=== PATIENT | female | born 1945 | race Caucasian/White ===

== ENCOUNTER 2024-08-26 14:44 | Inpatient (IN) | payer MEDICARE, OTHER ==
[~2024-08-26] VITALS: Ht 170.2 cm; Wt 50.5 kg
[2024-08-26 15:30] LABS: BASOPHILS ABSOLUTE AUTO 0.03 K/mm3 (0.00-0.23); BASOPHILS PERCENT AUTO 0 % (0-2); EOSINOPHILS ABSOLUTE AUTO 0.08 K/mm3 (0.00-0.68); EOSINOPHILS PERCENT AUTO 1 % (0-6); Hematocrit 37.4 % (33.0-51.0); Hemoglobin 12.3 g/dL (11.5-16.0); IMMATURE GRAN ABSOLUTE AUTO 0.09 K/mm3 (0.00-0.10); IMMATURE GRAN PERCENT AUTO 1 % (0-1); LYMPHOCYTES ABSOLUTE AUTO 1.08 K/mm3 (0.84-5.20); LYMPHOCYTES PERCENT AUTO 13 % (21-46); MONOCYTES ABSOLUTE AUTO 0.46 K/mm3 (0.16-1.47); MONOCYTES PERCENT AUTO 6 % (4-13); Mean Corpuscular HGB 31.4 pg (26.0-34.0); Mean Corpuscular HGB Conc 32.9 g/dL (31.5-36.5); Mean Corpuscular Volume 95 fL (80-100); Mean Platelet Volume 9.7 fL (9.1-12.4); NEUTROPHILS ABSOLUTE AUTO 6.41 K/mm3 (1.96-9.15); NEUTROPHILS PERCENT AUTO 79 % (41-73); Platelet Count 245 K/mm3 (150-400); RDW Coefficient Variation 13.2 % (11.7-14.2); RDW Standard Deviation 46.3 fL (35.1-46.3); Red Blood Cell Count 3.92 M/mm3 (3.80-5.20); White Blood Cell Count 8.15 K/mm3 (4.00-11.30)
[2024-08-26] MEDS ORDERED: Ondansetron HCl 2 MG / ML 2ML Vial IV ONE (15:30)
[2024-08-26 15:45] LABS: Albumin, Blood 3.5 g/dL (3.4-5.0); Albumin/Globulin Ratio 1.2 (0.8-1.8); Bilirubin, Total 0.3 mg/dL (0.1-1.0); Bun/Creatinine Ratio 15.2 (12.0-20.0); Calcium, Blood 8.5 mg/dL (8.5-10.1); Creatinine, Blood 0.79 mg/dL (0.40-1.00); Globulin, Blood 2.8 g/dL (2.2-4.0); Potassium, Blood 4.3 mmol/L (3.5-5.5); Thyroid Stimulating Hormone 3.19 uIU/mL (0.360-4.800); Total Protein, Blood 6.3 g/dL (6.4-8.2)
[2024-08-26] MEDS ORDERED: Aspirin 325 MG Tab PO ONE (16:00)
[2024-08-26 16:48] LABS: Source, Urine Clean Catch
[2024-08-26 16:55] LABS: Appearance, Urine Hazy (Clear); Bilirubin, Urine Neg (Neg); Blood, Urine 1+ (Neg); Color, Urine Yellow (P-Yellow); Glucose Qualitative, Urine Neg (Neg); Ketones, Urine 1+ (Neg); Leukocyte Esterase, Urine 2+ (Neg); Nitrite, Urine Neg (Neg); Protein, Urine 2+ (Neg); Specific Gravity, Urine 1.025 (1.003-1.022); Urobilinogen, Urine NORM (Normal)
[2024-08-26 17:09] LABS: Bacteria Many /hpf; Hyaline Casts 0-2 /lpf (0-2); Mucus Light (0-Heavy); Red Blood Cells, Urine 0-2 /hpf (0-2); Squamous Epithelial Cells Many /hpf (Few)
[2024-08-26] MEDS ORDERED: CefTRIAXone Sodium 1,000 MG in NS 50 ML IV ONE (18:55)
[2024-08-26 19:18] LABS: Anti-Xa UFH, PHA Monitoring <0.10 IU/mL; International Normalized Ratio 1.12; Prothrombin Time Results 11.9 Sec (9.7-11.5)
[2024-08-26] MEDS ORDERED: NS 500 ML IV ONE (20:00)
[2024-08-26] MEDS ORDERED: FLU VACC TS2024-25(6MOS UP)/PF 45 MCG/0.5 ML SYRINGE IM ONE (20:00)
[2024-08-26] MEDS ORDERED: Ondansetron HCl 2 MG / ML 2ML Vial IV PRN (20:00)
[2024-08-26] MEDS ORDERED: NS 1,000 ML IV SCH (20:00)
[2024-08-26] MEDS ORDERED: Heparin Sodium 5000 Units/ML 1ML MDV IV ONE (20:45)
[2024-08-26] MEDS ORDERED: Heparin Sodium,Porcine/0.5 NS 500 ML IV SCH (20:45)
[2024-08-26] MEDS ORDERED: Lactobacil 2-S.Thermo-Bifido 1 1 Cap PO SCH (21:00)
[2024-08-26] MEDS ORDERED: Metoprolol Tartrate 25 MG Tab PO SCH (22:00)
[2024-08-26 22:34] VITALS: BP 134/86
--- NOTE | 2024-08-26 23:24 | NUR ---
PT ARRIVED FROM ED TO PCU 2229. A&OX4. VSS ON RA. PT HAS NO C/O CP AT THIS TIME HOWEVER DOES C/O MINIMAL CHEST TIGHTNESS BUT STATES IT HAS IMPROVED. PLACED ON HEPARIN DRIP AND NS @ 125CC/HR PER SEP. PT ORIENTED TO ROOM AND GIVEN CALL VITAL WITHIN REACH. NPO AT MIDNIGHT. WILL CONTINUE HOURLY ROUNDING.
[2024-08-27 03:18] VITALS: BP 118/78
--- NOTE | 2024-08-27 05:08 | NUR ---
SHIFT SUMMARY PT A&OX4. VSS ON . NO C/O CP OR TIGHTNESS. NO SOB, N/V. PT AMBULATING TO BATHROOM WITH ONE ASSIST. CONTINUOUS NS @125CC/HR RUNNING ALONG WITH HEPARIN PER SEP. PT REMAINS NPO SINCE MIDNIGHT. PT RESTING COMFORTABLY IN BED WITH NO FURTHER QUESTIONS OR CONCERNS AT THIS TIME. CALL VITAL WITHIN REACH. WILL REPRT TO ONCOMING NURSE.
[2024-08-27 05:25] LABS: BASOPHILS ABSOLUTE AUTO 0.02 K/mm3 (0.00-0.23); BASOPHILS PERCENT AUTO 0 % (0-2); EOSINOPHILS ABSOLUTE AUTO 0.02 K/mm3 (0.00-0.68); EOSINOPHILS PERCENT AUTO 0 % (0-6); Hematocrit 36.1 % (33.0-51.0); IMMATURE GRAN ABSOLUTE AUTO 0.04 K/mm3 (0.00-0.10); IMMATURE GRAN PERCENT AUTO 0 % (0-1); LYMPHOCYTES ABSOLUTE AUTO 1.26 K/mm3 (0.84-5.20); LYMPHOCYTES PERCENT AUTO 13 % (21-46); MONOCYTES ABSOLUTE AUTO 0.62 K/mm3 (0.16-1.47); MONOCYTES PERCENT AUTO 6 % (4-13); Mean Corpuscular HGB 31.4 pg (26.0-34.0); Mean Corpuscular HGB Conc 33.2 g/dL (31.5-36.5); Mean Corpuscular Volume 95 fL (80-100); NEUTROPHILS ABSOLUTE AUTO 8.04 K/mm3 (1.96-9.15); NEUTROPHILS PERCENT AUTO 80 % (41-73); Platelet Count 231 K/mm3 (150-400); RDW Coefficient Variation 13.2 % (11.7-14.2); RDW Standard Deviation 46.1 fL (35.1-46.3); Red Blood Cell Count 3.82 M/mm3 (3.80-5.20)
[2024-08-27] MEDS ORDERED: Clarify Drug Order XX ONE (06:05)
[2024-08-27 06:18] LABS: Alanine Aminotransfer (ALT/SGP 19 U/L (12-78); Albumin, Blood 3.2 g/dL (3.4-5.0); Albumin/Globulin Ratio 1.2 (0.8-1.8); Alk Phos 56 U/L (50-136); Anion Gap 13 mmol/L (3-11); Aspartate Aminotrans (AST/SGOT 24 U/L (12-37); Bilirubin, Total 0.9 mg/dL (0.1-1.0); Blood Urea Nitrogen 10 mg/dL (8-24); Bun/Creatinine Ratio 12.2 (12.0-20.0); CHOL/HDL RATIO 2.2; CO2, Blood 20 mmol/L (21-32); Chloride, Blood 113 mmol/L (98-108); Cholesterol 177 mg/dL (50-200); Creatinine, Blood 0.82 mg/dL (0.40-1.00); Globulin, Blood 2.6 g/dL (2.2-4.0); Glomerular Filtration Rate 73 (60-); Glucose, Blood 117 mg/dL (70-99); HDL Cholesterol 79 mg/dL (>39); Low Density Lipoprotein Chol 82 mg/dL (0-110); Potassium, Blood 3.6 mmol/L (3.5-5.5); Sodium, Blood 142 mmol/L (136-145); Total Protein, Blood 5.8 g/dL (6.4-8.2); Triglycerides 78 mg/dL (30-160); Very Low Density Lipoprot Chol 15 mg/dL (6-32)
--- NOTE | 2024-08-27 07:15 | NUR ---
THIS RN ASSUMING CARE OF PT AFTER REPORT FROM NOC, RN. PT WAS RESTING IN BED WITH LIGHTS DIMMED WHEN THIS RN ENTERED ROOM, PT WAS ALERT AND RESPONSIVE. PT AXO X 4. SHE DOES C/O OF VISION ISSUES CHRONIC PER PT. SHE DENIES ANY C/P OR PRESSURE TODAY. B/P AND HR STABLE. SHE HAS HEPARIN RUNNING AT 15U/HR WELL NS MAINT, FLUID. BOTH IVS INTACT AND FLOWING WELL. NO SIGNS/SX OF INFILTRATION. SHE DENIES ANY SOB. LUNGS CLEAR WITH SPO2 98% RA. SHE WAS PROVIDED WITH MORNING MEDICATIONS AND BECAME NAUSEATED. NO EMESIS OR ABD PAIN, RESOLVED WITH ZOFRAN. PT NPO UNITL ECHO COMPLETION AND CARDIOLOGY CONSULT. SHE IS NSR AT RATES 80. TROPS TRENDING DOWN 1800 TO 1700. SHE IS POSITIVE FOR UTI BUT DENIES SX AND DECLINES TREATMENT D/T ISSUES WITH ABX. SHE IS PLESANT AND COOPERATIVE. AWITS CARDIOLOGY CONSULT. PLAN TO CONTINUE HEPARIN GTT AND AWAIT CARDIOLOGY ORDERS. PT EDUCATED ON USE OF CALL LIGHT. RESTING COMFORTABLY IN BED AND DENIES NEEDS AT THIS TIME.
[2024-08-27 08:23] VITALS: BP 108/73
[2024-08-27] MEDS ORDERED: Aspirin 81 MG Chew PO SCH (09:00)
[2024-08-27] MEDS ORDERED: Atorvastatin 40 MG Tab PO SCH (09:00)
[2024-08-27] MEDS ORDERED: Dose Adjust by Pharmacy XX STA (11:05)
--- NOTE | 2024-08-27 11:06 | NUR ---
ADVISED TO KEEP HEPARIN GTT RUNNING AT 15U. NO RATE CHANGE AT THIS TIME.
[2024-08-27 12:01] VITALS: BP 103/57
[2024-08-27 13:33] LABS: CORONAVIRUS COVID-19 AG Negative (NEGATIVE); INFLUENZA A AG Negative (NEGATIVE); INFLUENZA B AG Negative (NEGATIVE)
[2024-08-27 15:48] VITALS: BP 115/66
--- NOTE | 2024-08-27 17:46 | NUR ---
PCU DAY SHIFT SUMMARY: PT HAS REMAINED STABLE WITH NO ACUTE CHANGES IN CONDITION SINCE ASSUMPTION OF CARE NOTE. PT CONTINUES OT BE AXO X 4. PT SLEEPY T/O THE DAY. FAMILY CAME TO VISIT AND PLAN OF CARE PROVIDED BY THIS RN. PT DENIED ANY C/P T/O THE DAY AND RATE REMAINED SINUS AT 70-80BPM. PT CONTINUED ON HEPARIN GTT AT 15U W/O COMPLICATION. SHE HAS PLAN FOR ANGIOGRAM TOMORROW. NPO AT MIDNIGHT. PT REMAINED CLEAR LUNG SOUNDS 98% RA. PT WAS HAVING ELEVATED TEMPS 99.2 AND 99.5 BUT ROOM WAS SET AT 85 DEGREES AND PT HAD MULTIPLE BALNKETS ON. DENIED S/SX OF FEVER. PT ATE BREAKFAST AND LUNCH AND DENIED ANY MORE NAUSEA. PLAN TO CONTINUE CARE UNTIL REPORT TO DAISY GRACIA. CALL LIGHT WITHIN REACH
[2024-08-27 19:37] VITALS: BP 128/59
[2024-08-27 23:43] VITALS: BP 115/79
[2024-08-28] VITALS (12 sets, daily range): BP systolic 114–164; BP diastolic 70–95
--- NOTE | 2024-08-28 05:09 | NUR ---
SHIFT SUMMARY PT FORGETFUL AT TIMES HOWEVER REMAINS A&OX4. VSS ON RA. PT CONTINUES TO HAVE HEPARIN RUNNING AND NS @125CC/HR. PT GIVEN MEDS PER MAR. NO C/O PAIN, N/V OR SOB. PT REMAINS ON TELE NSR 80'S. NO FURTHER QUESTIONS OR CONCERNS AT THIS TIME. WILL REPORT TO ONCOMING NURSE.
[2024-08-28 05:16] LABS: Hematocrit 34.1 % (33.0-51.0); Hemoglobin 11.1 g/dL (11.5-16.0); Mean Platelet Volume 9.6 fL (9.1-12.4); Platelet Count 178 K/mm3 (150-400)
[2024-08-28] MEDS ORDERED: Heparin Sodium 5000 Units/ML 1ML MDV IV ONE (06:35)
[2024-08-28] MEDS ORDERED: Dose Adjust by Pharmacy XX STA (06:36)
--- NOTE | 2024-08-28 10:08 | NUR ---
am note this rn assumed care at 0700. vital signs stable. tele sinus rhythm 70s. patient is alert and oriented x4. patient reports "kelodiscope vision" in left eye since her stroke. patient is able to make needs known and uses call light appropriately. denies pain, chest pain/pressure or shortness of breath. lung sounds clear throughout. see shift assessment for further detials. md young in to see patient and discussed plan of care. patient remains npo for angio today.
[2024-08-28] MEDS ORDERED: Verapamil HCL 2.5 MG/ML 2ML Injection ONE (10:29)
[2024-08-28] MEDS ORDERED: NS 250 ML IV ONE (10:29)
[2024-08-28] MEDS ORDERED: Nitroglycerin 2 MG/20 ML BTL ONE (10:30)
[2024-08-28] MEDS ORDERED: Heparin Sodium 1000 Units/ML 10ML MDV ONE ×2 (10:30→13:01)
[2024-08-28] MEDS ORDERED: NS 1,000 ML IV ONE ×2 (10:30→11:50)
[2024-08-28] MEDS ORDERED: Midazolam HCl 1MG / ML 2ML Vial ONE (11:49)
[2024-08-28] MEDS ORDERED: FentaNYL Citrate 50 MCG/ML 2 ML Injection ONE (11:49)
--- NOTE | 2024-08-28 12:05 | NUR ---
left for angio patient left with heart center team for angio at 1200. patient left in no distress and vitals stable.
[2024-08-28] MEDS ORDERED: Tirofiban HCL Monohydrate 3.75 MG/15 ML Vial ONE (13:02)
[2024-08-28] MEDS ORDERED: Clopidogrel Bisulfate 300 MG Cap ONE (13:14)
[2024-08-28] MEDS ORDERED: NS 1,000 ML IV SCH (13:35)
[2024-08-28] MEDS ORDERED: HyDROXyzine HCl 25 MG Tab PO PRN ×2 (16:10→21:10)
--- NOTE | 2024-08-28 16:27 | NUR ---
UPDATE patient son gerda davies called to express concern about patient living with her daughter, his sister, german, stating that his sister yells at her (the patient) and will neglect her care. this rn listened to the sons concerns and the son stated he thinks his sister is using meth and he "hates people who use meth". this rn looked over the admit screening and saw the patient stated no and explained that to the son. this rn went in and spoke with the patient and patient denied her daughter being neglectful and that she does occasoanlly yell at her, but shes "a shit" & "has a leather voice". 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 patient goes into discussing how her eldest son did meth and is in half-way, and her son, gerda davies took that hard, and that her daugher, german, used to do meth but it has been years and she would know if her daughter was. she stated that german and gerda davies have always fought, and butt heads and discussed their relationshp growing up. Patient stated multiple times she is not fearful for her safety and state her daughter is not neglectful or verbally absuive to her.
--- NOTE | 2024-08-28 17:05 | NUR ---
Patient is lying in bed and alert. She has recently returned from an agiogram and is in good spirits but still struggling a bit with her breathing. She shares about the recent of her spouse just a year ago and the complicated grief that she has done through. SHe then talk about her life, her joys, her sharlene ([employer]) and her family (2 boys and 2 girls). 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 I reinforced her helpful attitudes and practices, and provided therapeutic listening and prayer. Patient responded well and showed signs of an elevated mood. I will continue to remain available to patient and family.
[2024-08-28] MEDS ORDERED: HydrALAZINE HCl 20 MG / ML 1ML Vial IV PRN (17:35)
--- NOTE | 2024-08-28 18:06 | NUR ---
shift summary patient right radial site has tr band in place that is fully deflated. patient did have a slight ooze at sight when first returning with two tr bands in place. vital signs stable. update charge nurse rn aidan on conversation with son and patient documented in previous note and international trade teacher aware of the siblinings differences. no acute changes this shift. this rn called md young due to patient complaining of difficulty breathing and orders for atarax placed. patient given atarax in additon to 2l nc for comfort. patient is now talkin on the phone in room with no anxiety. this rn called md young due to patient having bp >160, prn hydrlazine ordered as needed for sbp >160. this rn did not need to give hydralzine as bp under parameters at this time. no acute changes. see previous notes
[2024-08-28] MEDS ORDERED: Atorvastatin 40 MG Tab PO SCH (21:00)
--- NOTE | 2024-08-28 21:23 | NUR ---
CONTACTED RESIDENT WILDER: PT REPORTS SHE CAN'T CATCH HER BREATH OR FOCUS, SHE FEELS OUT OF SORTS. VSS, ENOCURAGED DEEP FOCUSED BREATHS, MUSIC OR TV, PT DECLINES MUSIC OR TV AND IS ATTEMPTING SLOW DEEP BREAHTS. NEW ORDERS REC'D.
[2024-08-29 00:06] VITALS: BP 149/88
[2024-08-29 03:43] VITALS: BP 145/94
[2024-08-29] MEDS ORDERED: Metoprolol Tartrate 1 MG/ML 5 ML VIAL IV PRN (04:45)
[2024-08-29 04:56] VITALS: BP 136/114
[2024-08-29 08:32] VITALS: BP 126/64
[2024-08-29] MEDS ORDERED: METO50ER PO (08:47)
[2024-08-29] MEDS ORDERED: Metoprolol Succinate 25 MG TABCR PO SCH (09:00)
[2024-08-29] MEDS ORDERED: Losartan Potassium 25 MG Tab PO SCH (09:00)
[2024-08-29] MEDS ORDERED: Clopidogrel Bisulfate 75 MG Tab PO SCH (09:00)
[2024-08-29] MEDS ORDERED: Metoprolol Succinate 25 MG TABCR PO ONE (09:45)
[2024-08-29 11:47] VITALS: BP 121/73
[2024-08-29] MEDS ORDERED: LOW DOSE ASPIRI81 M1 PO (13:03)
[2024-08-29] MEDS ORDERED: LOSA25 PO (13:04)
[2024-08-29] MEDS ORDERED: CLOP75 PO (13:04)
[2024-08-29] MEDS ORDERED: ATOR40TA PO (13:04)
[2024-08-29] MEDS ORDERED: HYDHCL25 PO (14:14)
[2024-08-29 15:35] VITALS: BP 119/60
--- NOTE | 2024-08-29 16:14 | NUR ---
Patient is lying in bed and alert. She tells me that she will D/C to home today. She shares personal stories with a theme of tragedy to triumph and of God's power and love that has guided her and healed her. 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 Because of her strong sharlene, I supplied prayer and theological insights, with a good results of encouraging her in her belief system.
--- NOTE | 2024-08-29 18:21 | NUR ---
DISCHARGE SUMMARY PT A&Ox4, CALLS AND COMMUNICATES NEEDS APPROPRIATELY. BP STABLE, SINUS 90's, DENIES CP/PRESSURE. SpO2> 92% RA, DENIES SOB. SBA IN ROOM. R RADIAL SITE WNL, ARM BOARD IN PLACE. NO EPISODES OF ANXIETY. DISCHARGE INSTRUCTIONS PROVIDED WITH FAMILY AT BEDSIDE. PT TAKEN OUT VIA WHEELCHAIR BY CLINICAL STAFF MEMBER WITH ALL PT BELONGINGS AT APPROXIMATELY 1630.
[2024-08-30] MEDS ORDERED: Metoprolol Succinate 50 MG TABCR PO SCH (09:00)
== END 2024-08-29 16:38 | disposition home or self-care (01) | DRG 322 ==
LOC: ER 14:44 → ERHOLD 19:55 → PCU 19:55
PROVIDERS: Nurse Practitioner Acute Care; Student in an Organized Health Care Education/Training Program; ADMIT Internal Medicine
PROC: 027034Z Dilation of Coronary Artery, One Artery with Drug-eluting Intraluminal Device, Percutaneous Approach (ICD-10-PCS; principal; 2024-08-28)
PROC: B2111ZZ Fluoroscopy of Multiple Coronary Arteries using Low Osmolar Contrast (ICD-10-PCS; 2024-08-28)
PROC: 4A023N7 Measurement of Cardiac Sampling and Pressure, Left Heart, Percutaneous Approach (ICD-10-PCS; 2024-08-28)
PROC: B2111ZZ Fluoroscopy of Multiple Coronary Arteries using Low Osmolar Contrast (ICD-10-PCS; 2024-08-28)
PROC: 4A023N7 Measurement of Cardiac Sampling and Pressure, Left Heart, Percutaneous Approach (ICD-10-PCS; 2024-08-28)
DX: I21.4 Non-ST elevation (NSTEMI) myocardial infarction (principal); I47.19 Other supraventricular tachycardia; Z86.73 Personal history of transient ischemic attack (TIA), and cerebral infarction without residual deficits; F41.9 Anxiety disorder, unspecified; I10 Essential (primary) hypertension; R73.9 Hyperglycemia, unspecified; I48.0 Paroxysmal atrial fibrillation; Z79.899 Other long term (current) drug therapy
CPT/HCPCS: 36415; 70450; 71046; 71260; 76937; 80053; 80061; 81001; 83036; 83735; 84145; 84146; 84443; 84484; 85014; 85018; 85025; 85049; 85347; 85379; 85520; 85610; 85730; 87086; 87428-QW; 93005; 93010; 93306; 93454; 96374-59; 99152; 99153; 99285-25; A9270; C1769; C1874; C1887; C1894; C9600; J0360; J0696; J1644; J2250; J2405; J3010; J3246; J7030; J7050; Q9967

== ENCOUNTER 2024-09-02 15:49 | Inpatient (IN) | payer MEDICARE, OTHER ==
[~2024-09-02] VITALS: Ht 170.2 cm; Wt 50.8 kg
[~2024-09-02 15:49] MED LIST: ATOR40TA PO; CLOP75 PO; HYDHCL25 PO; LOSA25 PO; LOW DOSE ASPIRI81 M1 PO; METO50ER PO
[2024-09-02 16:25] LABS: BASOPHILS ABSOLUTE AUTO 0.04 K/mm3 (0.00-0.23); BASOPHILS PERCENT AUTO 1 % (0-2); EOSINOPHILS ABSOLUTE AUTO 0.17 K/mm3 (0.00-0.68); EOSINOPHILS PERCENT AUTO 2 % (0-6); Hematocrit 36.6 % (33.0-51.0); Hemoglobin 12.3 g/dL (11.5-16.0); IMMATURE GRAN ABSOLUTE AUTO 0.02 K/mm3 (0.00-0.10); IMMATURE GRAN PERCENT AUTO 0 % (0-1); LYMPHOCYTES PERCENT AUTO 16 % (21-46); MONOCYTES ABSOLUTE AUTO 0.59 K/mm3 (0.16-1.47); MONOCYTES PERCENT AUTO 7 % (4-13); Mean Corpuscular HGB Conc 33.6 g/dL (31.5-36.5); Mean Corpuscular Volume 92 fL (80-100); Mean Platelet Volume 9.3 fL (9.1-12.4); NEUTROPHILS ABSOLUTE AUTO 6.41 K/mm3 (1.96-9.15); NEUTROPHILS PERCENT AUTO 74 % (41-73); Platelet Count 380 K/mm3 (150-400); RDW Coefficient Variation 13.1 % (11.7-14.2); RDW Standard Deviation 44.2 fL (35.1-46.3); Red Blood Cell Count 3.97 M/mm3 (3.80-5.20); White Blood Cell Count 8.63 K/mm3 (4.00-11.30)
[2024-09-02 16:45] LABS: Albumin, Blood 3.4 g/dL (3.4-5.0); Bilirubin, Total 0.6 mg/dL (0.1-1.0); Calcium, Blood 9.5 mg/dL (8.5-10.1); Creatinine, Blood 0.6 mg/dL (0.40-1.00); Globulin, Blood 3.5 g/dL (2.2-4.0); Potassium, Blood 3.4 mmol/L (3.5-5.5); Total Protein, Blood 6.9 g/dL (6.4-8.2)
[2024-09-02] MEDS ORDERED: Furosemide 10 MG / ML 2ML Vial IV ONE ×3 (20:05→23:35)
[2024-09-02] MEDS ORDERED: Ondansetron HCl 2 MG / ML 2ML Vial IV PRN (22:00)
[2024-09-02] MEDS ORDERED: Enoxaparin 40 MG/0.4 ML SYR SC SCH (22:00)
[2024-09-02] MEDS ORDERED: FLU VACC TS2024-25(6MOS UP)/PF 45 MCG/0.5 ML SYRINGE IM ONE (22:00)
[2024-09-02] MEDS ORDERED: HydrALAZINE HCl 20 MG / ML 1ML Vial IV PRN (22:00)
[2024-09-02 22:50] VITALS: BP 164/83
[2024-09-02] MEDS ORDERED: HyDROXyzine HCl 25 MG Tab PO PRN (23:35)
[2024-09-02] MEDS ORDERED: Potassium Chloride 20 MEQ TabCR PO ONE (23:40)
[2024-09-02] MEDS ORDERED: Potassium Chloride 40 MEQ in NS 250 ML IV ONE (23:45)
[2024-09-03 00:18] VITALS: BP 123/96
[2024-09-03 03:56] VITALS: BP 93/62
[2024-09-03 06:10] LABS: BASOPHILS ABSOLUTE AUTO 0.02 K/mm3 (0.00-0.23); BASOPHILS PERCENT AUTO 0 % (0-2); EOSINOPHILS ABSOLUTE AUTO 0.04 K/mm3 (0.00-0.68); EOSINOPHILS PERCENT AUTO 1 % (0-6); Hematocrit 35.8 % (33.0-51.0); Hemoglobin 11.8 g/dL (11.5-16.0); IMMATURE GRAN ABSOLUTE AUTO 0.03 K/mm3 (0.00-0.10); IMMATURE GRAN PERCENT AUTO 0 % (0-1); LYMPHOCYTES PERCENT AUTO 12 % (21-46); MONOCYTES ABSOLUTE AUTO 0.66 K/mm3 (0.16-1.47); MONOCYTES PERCENT AUTO 8 % (4-13); Mean Corpuscular HGB 31.5 pg (26.0-34.0); Mean Corpuscular Volume 96 fL (80-100); Mean Platelet Volume 9.5 fL (9.1-12.4); NEUTROPHILS ABSOLUTE AUTO 6.37 K/mm3 (1.96-9.15); NEUTROPHILS PERCENT AUTO 79 % (41-73); Platelet Count 354 K/mm3 (150-400); RDW Coefficient Variation 13.1 % (11.7-14.2); RDW Standard Deviation 45.3 fL (35.1-46.3); Red Blood Cell Count 3.75 M/mm3 (3.80-5.20); White Blood Cell Count 8.12 K/mm3 (4.00-11.30)
[2024-09-03 06:51] LABS: Albumin, Blood 3.1 g/dL (3.4-5.0); Bilirubin, Total 0.6 mg/dL (0.1-1.0); Bun/Creatinine Ratio 15.3 (12.0-20.0); Creatinine, Blood 0.65 mg/dL (0.40-1.00); Globulin, Blood 3.1 g/dL (2.2-4.0); Potassium, Blood 4.6 mmol/L (3.5-5.5); Total Protein, Blood 6.2 g/dL (6.4-8.2)
[2024-09-03] MEDS ORDERED: Potassium Chloride 10 Meq Tablet SA PO SCH (08:00)
[2024-09-03 08:01] VITALS: BP 104/59
[2024-09-03] MEDS ORDERED: Aspirin 81 MG TabEC PO SCH (09:00)
[2024-09-03] MEDS ORDERED: Metoprolol Succinate 50 MG TABCR PO SCH (09:00)
[2024-09-03] MEDS ORDERED: Empagliflozin 10 MG TAB PO SCH (09:00)
[2024-09-03] MEDS ORDERED: Clopidogrel Bisulfate 75 MG Tab PO SCH (09:00)
[2024-09-03] MEDS ORDERED: Losartan Potassium 25 MG Tab PO SCH ×2 (09:00→21:00)
[2024-09-03] MEDS ORDERED: Furosemide 10 MG/ML 4ML Vial IV SCH ×2 (09:00)
[2024-09-03] MEDS ORDERED: Torsemide 20 MG TAB PO SCH (09:00)
--- NOTE | 2024-09-03 10:57 | NUR ---
AM NOTE: PATIENT ALERT AND ORIENTED. VERY PLEASENT AND COOPERATIVE WITH CARES. PATIENT EXPRESSES RELIEF AND STATES SHE IS FEELING MUCH BETTER. PERRLA. DENIES PAIN/NUMBNESS/TINGLING. UP WITH SBA. SLIGHTLY WEAK AND STATES SHE USES A CANE AT BASELINE. ABLE TO TURN SELF IN BED. BED BATH THIS AM AND COMPLETED LINNEN CHANGE. TELE SHOWING SR/ST WITH HR 80-100'S. DENIES CHEST PAIN/PRESSURE/PALPITATIONS. SBP 100'S. NO EDEMA NOTED. IV SALINE LOCKED. DR. MCFARLANE BY THIS AM AND DISCUSSED CARDIAC MEDICATION WITH PATIENT IN DETAIL. ON 2L NASAL CANNULA SATING 90-94%. ROOM AIR TRIAL AND PATIENT DESATED TO 86%. SOB WITH EXCERTION. PATIENT STATES SHE IS BREATHING MUCH BETTER. CRACKLES HEARD IN RIGHT UPPER AND MIDDLE LOBES. DENIES COUGH. EVEN AND UNLABORED RESPIRATIONS AT REST. BOWEL TONES PRESENT. DIET ORDERS IN PLACE. PATIENT VEGETARIAN. DENIES ABDOMINAL PAIN/NAUSEA. ATTENDS IN PLACE. FLORA REMOVED THIS AM. PATIENT ABLE TO USE BSC/BATHROOM WITH SBA. DAUGHTER SUBHA AT BEDSIDE. CALL LIGHT IN REACH. DR. MCFARLANE AT BEDSIDE THIS MORNING AND MEDICAL WITH TELE ORDERS IN PLACE.
[2024-09-03 11:28] VITALS: BP 94/60
--- NOTE | 2024-09-03 11:40 | NUR ---
THIS RN UPDATED DR. MCFARLANE ON AFTERNOON BLOOD PRESSURE. DR. MCFARLANE TO PLACE ORDERS.
[2024-09-03] MEDS ORDERED: Furosemide 40 MG Tab PO SCH (12:00)
--- NOTE | 2024-09-03 12:25 | NUR ---
ECHO BEING DONE AT THIS TIME
[2024-09-03 15:18] VITALS: BP 119/73
--- NOTE | 2024-09-03 18:13 | NUR ---
SHIFT SUMMARY: NO ACUTE CHANGES. VITAL SIGNS REMAIN STABLE THROUGHOUT SHIFT. TELE CONTINUES TO SHOW SR/ST WITH HR 80-100'S. PATIENT CONTINUES TO STATE SHE FEELS BETTER. TITRATED TO ROOM AIR AND NEEDING 2L WHEN SLEEPING. TOLERATING PO DIET. UP TO BSC TO VOID. DENIES PAINS. THIS RN PROVIDED HEART FAILURE EDUCATION WHICH INCLUDED SYMPTOM MANAGEMENT, WHAT TO KNOW, WHAT TO EXPECT, MEDICATIONS, MONITORING WEIGHT, DIET AND LIFESTYLE CHANGES. DAUGHTER AT BEDSIDE THIS MORNING AND UPDATED ON PLAN OF CARE. MEDICAL STATUS WITH TELE. PATIENT EATING DINNER AT THIS TIME AND DENIES NEEDS.
[2024-09-03 20:07] VITALS: BP 121/67
[2024-09-04 03:51] VITALS: BP 114/69
--- NOTE | 2024-09-04 04:20 | NUR ---
SHIFT SUMMARY PT REMAINS A&OX4. VSS ON 1-2L NC >96%. PT HAD NO C/O SOB THROUGHOUT NIGHT. UP WITH SBA. PT CONTINUES TO BE VERY WEAK. REMAINS ON TELE MONITORING NSR HR 80-100s. BPs REMAINS STABLE. PT CONTINUES TO HAVE CRACKLES IN UPPER LOBES. DAUGHTER REMAINS AT BEDSIDE THROUGHOUT NIGHT. NO FURTHER QUESTIONS OR CONCERNS AT THIS TIME. WILL REPORT TO ONCOMING NURSE.
[2024-09-04 04:42] LABS: Bun/Creatinine Ratio 22.8 (12.0-20.0); Calcium, Blood 8.8 mg/dL (8.5-10.1); Creatinine, Blood 0.83 mg/dL (0.40-1.00); Potassium, Blood 3.9 mmol/L (3.5-5.5)
[2024-09-04 04:52] VITALS: BP 121/56
--- NOTE | 2024-09-04 05:05 | NUR ---
PCU O3 TRANFER. REPORT TAKEN. PATIENT ALERT, ORIENTED, AND SBA TRANSFER. ON 2L O2 NC. DAUGHTER PRESENT ON TRANSFER STAYING IN ROOM. PERSONAL POSSESSIONS WITH PATIENT. WCMARTA.
[2024-09-04 06:36] VITALS: BP 120/62
--- NOTE | 2024-09-04 14:58 | NUR ---
NOTE: NOTIFIED BY TELE OF PT'S HR INCREASING TO 150, SUSTAINING FOR 12 SECONDS. PT APPEARS ASYMPTOMATIC, SHE WAS SLEEPING. DR. MCFARLANE NOTIFIED AND NO NEW ORDERS AT THIS TIME.
[2024-09-04 15:42] VITALS: BP 108/53
--- NOTE | 2024-09-04 17:31 | NUR ---
SHIFT SUMMARY PT AOX4, SBA TO THE BSC. DAUGHTER AT THE BS ALL SHIFT. PLAN WAS TO DC TODAY BUT PT AND DAUGHTER THINK ONE MORE NIGHT FOR OBSERVATION WILL PUT THEM BOTH AT EASE. SEE OTHER NOTE ABOUT TELE EVENTS. PT HAS HAD NO ACUTE ISSUES, NO COMPLAINTS. SHOWER DONE THIS SHIFT. PT ON 1L OFF AND ON, RA AT BASELINE. PT REPOSITIONS SELF IN BED. CALL LIGHT WITHIN REACH, BED LOCKED AND IN THE LOWEST POSITION. WILL REPORT TO ONCOMING NURSE.
[2024-09-04 19:34] VITALS: BP 106/70
[2024-09-04 20:22] VITALS: BP 115/61
[2024-09-05 03:26] VITALS: BP 110/55
--- NOTE | 2024-09-05 04:23 | NUR ---
Shift Summary Pt c/o about some shortness of breath and tingling in hands/feet at the start of the shift. I put her one 1L O2 NC for comfort, O2 sat was above >95% on RA. Daughter is in the room with her. Pt is AOx4, 1 SBA assist to BSC. No c/o pain or nausea, she slept well t/o most of the night.
[2024-09-05 06:17] LABS: Bun/Creatinine Ratio 24.3 (12.0-20.0); Calcium, Blood 9.1 mg/dL (8.5-10.1); Creatinine, Blood 0.86 mg/dL (0.40-1.00); Potassium, Blood 3.8 mmol/L (3.5-5.5)
[2024-09-05 07:23] VITALS: BP 132/66
[2024-09-05] MEDS ORDERED: JARDIANCE10 MG PO (10:20)
[2024-09-05] MEDS ORDERED: FURO40 PO (10:21)
--- NOTE | 2024-09-05 15:38 | NUR ---
DISCHARGE NOTE PT DISCHARGED TO HOME, PICKED UP BY HER DAUGHTER. IV REMOVED, TELE RETURNED. MEDICATIONS FAXED TO THE PHARMACY OF HER CHOICE. DISCHARGE INFORMATION REVIEWED WITH THE PT. PERSONAL BELONGINGS RETURNED.
== END 2024-09-05 15:19 | disposition home or self-care (01) | DRG 280 ==
LOC: ER 15:49 → PCU 21:43 → ERHOLD 21:43 → PCU 22:40 → MEDS 09-04 04:48
PROVIDERS: Internal Medicine; Physician Assistant; ADMIT Internal Medicine
PROC: 5A09357 Assistance with Respiratory Ventilation, Less than 24 Consecutive Hours, Continuous Positive Airway Pressure (ICD-10-PCS; principal; 2024-09-02)
DX: I11.0 Hypertensive heart disease with heart failure (principal); I50.33 Acute on chronic diastolic (congestive) heart failure; I21.4 Non-ST elevation (NSTEMI) myocardial infarction; J96.01 Acute respiratory failure with hypoxia; F41.0 Panic disorder [episodic paroxysmal anxiety]; E78.5 Hyperlipidemia, unspecified; I25.10 Atherosclerotic heart disease of native coronary artery without angina pectoris; Z88.1 Allergy status to other antibiotic agents; Z79.82 Long term (current) use of aspirin; Z79.899 Other long term (current) drug therapy; Z95.5 Presence of coronary angioplasty implant and graft; Z86.73 Personal history of transient ischemic attack (TIA), and cerebral infarction without residual deficits; Z79.02 Long term (current) use of antithrombotics/antiplatelets; Z28.21 Immunization not carried out because of patient refusal
CPT/HCPCS: 36415; 71046; 80048; 80053; 82947; 83735; 83880; 84484; 85025; 93005; 93010; 93308; 93321; 94660; 94760; 94761; 96374; 99285-25; A9270; J0360; J1650; J1940; J2405; J3480; J7050